=== PATIENT | male | born 1995 | race American Indian/Alaskan Native ===

== ENCOUNTER 2017-07-20 11:05 | Outpatient (RCR) | payer OTHER ==
[~2017-07-20] VITALS: Ht 172.7 cm; Wt 52.2 kg
[2017-07-20 15:08] VITALS: BP 112/78
--- NOTE | 2017-07-20 15:38 | Medical Nutrition Therapy ---
Nutrition Anthropometrics Height (Inches): 68.00 Height (Calculated Centimeters: 172.336480 Weight (Pounds): 115 Weight (Calculated Kilograms): 52.051057 Hx Weight Loss: Yes (40# 2 years ago) Navjot Nutrition Score: Navjot Nutrition Risk Score: Dietary Referral Nutrition Risk Factors: Nutrition Risk Comment: Physical Findings Physical Appearance: Underweight BMI<19 (17.45) Skin Appearance Skin Appearance: Edema Edema Location Modifier: Edema Location: Type of Edema: Degree of Edema: Gastrointestinal Symptoms GI Symtoms: Tube Present: Bowel Sounds: Recent Bowel Pattern: Stool Characteristics: Nutrition/Food History Non-compliant W/Diet Good Skipped Meals: Yes Alcohol Use: Occassional Amount of Alcohol Used: drinks beer/liquor on the weekend Exercise: Yes (basketball 3x/week) Breakfast: eggs, norman, water Lunch: salad with meat, water Dinner: fast food Snacks: cheese, apples Nutritional Education Nutrition Education Topic: Other Learning Barriers: Emotional, Hx Of Non-Compliance Learning Readiness: Eager, Interested Teaching Methods: Discussion, Handout, Demonstration, Audiovisual Response to Teaching: Return demonstration, Verbalize understanding Teaching Recipient: Patient Nutrition Monitoring & Eval RD Patient Assessment Time: [address] Assessment Type: RD Education Nutritional Comment: Pt diagnosed with T2DM 3-4 years ago and controlled with metfomin and glipazide. Recently visited PCP with overt symptoms and blood glucose levels in the 300's and A1C of over 14%. C-peptide 0.4 ng/mL. Pt instructed on syringe and vial insulin injection with Levimer. Pt to begin Levimar @ 2u qHS increasing 1-2u/day until FBS in range of 90-110. Able to give insulin injection with assistance. Instructed on hypoglycemia symtoms and treatment. Pt appears interested in diabetes topics and able to answer questions regarding topics covered. I personally spent a total of 90 minutes educating/counseling patient regarding diabetes self-management and insulin injection procedures in an idividual setting. See education section and my note above for details. Copies To Copies to: JANETH HENNESSY APRN, DIANNE Jul 20, 2017 15:38
== END 2017-08-24 ==
LOC: DIET 11:05
PROVIDERS: ATTEND Nurse Practitioner Family
DX: E11.9 Type 2 diabetes mellitus without complications (principal); Z83.3 Family history of diabetes mellitus; Z68.1 Body mass index [BMI] 19.9 or less, adult; Z79.84 Long term (current) use of oral hypoglycemic drugs
CPT/HCPCS: G0108